=== PATIENT | female | born 1990 ===

== ENCOUNTER → 2024-01-16 17:22 | Outpatient (REF) | payer OTHER, SELFPAY | LOC: MRI 17:22 | PROVIDERS: ATTENDING PHYSICIAN Internal Medicine | DX: M54.31 Sciatica, right side (principal) | CPT/HCPCS: 72148 ==

== ENCOUNTER → 2024-04-05 12:03 | Outpatient (REF) | payer OTHER, SELFPAY | LOC: RAD 12:03 | PROVIDERS: ATTENDING PHYSICIAN Orthopaedic Surgery Orthopaedic Surgery of the Spine; FAMILY PHYSICIAN Internal Medicine | DX: M54.9 Dorsalgia, unspecified (principal) | CPT/HCPCS: 72110 ==